=== PATIENT | male | born 1955 | race Caucasian/White ===

== ENCOUNTER 2019-02-06 04:56 | Day surgery (SDC) | payer OTHER ==
[~2019-02-06 04:56] MED LIST: DIOVAN40 MG PO; ZOCOR20 MG PO
[2019-02-06] MEDS ORDERED: DUI500 PO (11:41)
[2019-02-06] MEDS ORDERED: OXYC1TAB9 PO (11:41)
== END 2019-02-06 13:50 | disposition home or self-care (01) ==
LOC: CIR.AMB 04:56 → SURH 08:38 → EDSTATUS 08:49 → CIR.AMB 08:55
DX: S92.042 Displaced other fracture of tuberosity of left calcaneus (principal)
CPT/HCPCS: 28415; 20902; C1776

== ENCOUNTER 2022-03-18 07:30 | Inpatient (IN) | payer OTHER ==
[~2022-03-18] VITALS: Ht 167.6 cm; Wt 85.3 kg
[~2022-03-18 07:30] MED LIST changes: +DUI500 PO; +OXYC1TAB9 PO
[2022-03-18] MEDS ORDERED: FARXIGA10 MG PO (08:20)
[2022-03-23] MEDS ORDERED: PANTOPRAZOLE SO40 MG (16:13)
[2022-03-23] MEDS ORDERED: LOSARTAN POTASS50 MG (16:13)
[2022-03-25] MEDS ORDERED: XARELTO10 MG PO (06:21)
[2022-03-25] MEDS ORDERED: OXYC1TAB9 PO (06:21)
[2022-03-25] MEDS ORDERED: BACTRIM DS TAB1 EACH PO (06:21)
[2022-03-25] MEDS ORDERED: INTEGRA PLUS C1 EACH PO (06:21)
== END 2022-03-26 18:55 | DRG 470 ==
LOC: SURH 03-23 07:30 → O/R 03-23 09:38 → SURG 03-23 09:38 → SURH 03-23 10:15 → SURG 03-23 17:35
PROVIDERS: ADMIT Orthopaedic Surgery Sports Medicine; ATTEND Orthopaedic Surgery Sports Medicine
PROC: 0SRD0J9 Replacement of Left Knee Joint with Synthetic Substitute, Cemented, Open Approach (ICD-10-PCS; principal; 2022-03-23 10:15)
DX: M17.12 Unilateral primary osteoarthritis, left knee (principal); I10 Essential (primary) hypertension; E11.9 Type 2 diabetes mellitus without complications; E78.5 Hyperlipidemia, unspecified